=== PATIENT | male | born 1955 | race Caucasian/White ===

== ENCOUNTER 2019-02-20 13:39 | Emergency (ER) | payer OTHER ==
[~2019-02-20] VITALS: Ht 165.1 cm; Wt 59.0 kg
[2019-02-20] MEDS ORDERED: MOBIC15 MG (13:50)
[2019-02-20] MEDS ORDERED: CRESTOR40 MG (13:50)
[2019-02-20] MEDS ORDERED: METFORMIN HCL1000 MG (13:50)
[2019-02-20] MEDS ORDERED: ASPIRIN81 MG (13:50)
[2019-02-20] MEDS ORDERED: VITAMIN B-122500 MCG (13:51)
== END 2019-02-20 22:57 | disposition home or self-care (01) ==
LOC: ER 13:39 → CPU-OBS 13:51 → ER 22:57
DX: N17.8 Other acute kidney failure (principal); G45.8 Other transient cerebral ischemic attacks and related syndromes; R47.81 Slurred speech; R07.89 Other chest pain; I10 Essential (primary) hypertension

== ENCOUNTER 2019-02-24 06:43 | Outpatient (CLI) | payer OTHER ==
[~2019-02-24 06:43] MED LIST: ASPIRIN81 MG; CRESTOR40 MG; METFORMIN HCL1000 MG; MOBIC15 MG; VITAMIN B-122500 MCG
== END 2019-02-24 12:22 | disposition home or self-care (01) ==
LOC: LAB 06:43
DX: E11.65 Type 2 diabetes mellitus with hyperglycemia (principal); M79.18 Myalgia, other site; R10.84 Generalized abdominal pain

== ENCOUNTER 2019-02-24 07:38 | Emergency (ER) | payer OTHER ==
[~2019-02-24] VITALS: Ht 165.1 cm; Wt 58.1 kg
== END 2019-02-24 12:29 | disposition home or self-care (01) ==
LOC: ER 07:38
DX: I20.8 Other forms of angina pectoris (principal); J90 Pleural effusion, not elsewhere classified; R18.8 Other ascites

== ENCOUNTER → 2019-03-01 11:48 | Outpatient (CLI) | payer OTHER | END | disposition home or self-care (01) | LOC: LAB 11:48 | DX: R10.84 Generalized abdominal pain (principal); E11.65 Type 2 diabetes mellitus with hyperglycemia ==

== ENCOUNTER → 2019-03-02 | Emergency (ER) | payer OTHER ==
[~2019-03-02] VITALS: Ht 165.1 cm; Wt 58.1 kg
== END | disposition designated cancer center or children's hospital (05) ==
LOC: ER 14:29 → CPU-OBS 14:33
DX: I24.9 Acute ischemic heart disease, unspecified (principal); I10 Essential (primary) hypertension; R07.89 Other chest pain; E11.65 Type 2 diabetes mellitus with hyperglycemia